=== PATIENT | male | born 1995 | race Caucasian/White ===

== ENCOUNTER 2019-04-07 16:07 | Emergency (ER) | payer SELFPAY ==
[~2019-04-07] VITALS: Ht 167.6 cm; Wt 78.2 kg
[2019-04-07 16:36] VITALS: Ht 167.6 cm; Wt 78.2 kg
[2019-04-07] MEDS ORDERED: SOD CHLORIDE 0.9% 1,000 ML IV STA (18:33)
[2019-04-07] MEDS ORDERED: ONDANSETRON 4 MG INJ IV STA (18:33)
[2019-04-07] MEDS ORDERED: ONDA4TAB14 PO (20:15)
[2019-04-07 20:28] VITALS: BP 127/72; PULSE 85; RESP 18
--- NOTE | 2019-04-08 04:05 | ERD ---
ER Documentation Chief Complaint Chief Complaint vomitting & body aches since am HPI This is a otherwise healthy 24-year-old male presents the ED complaining of nausea, vomiting since this morning. Patient reports multiple episodes of nonbilious, nonbloody emesis. He reports some abdominal cramping as well. Denies any fevers or chills. Denies any diarrhea. Denies any recent travel or antibiotics. Patient states symptoms started after eating steak and shrimp last night. No other ill contacts. ROS All systems reviewed and are negative except as per history of present illness. Medications Home Meds Active Scripts Ondansetron (Ondansetron Odt) 4 Mg Tab.rapdis, 4 MG PO Q6H PRN for NAUSEA AND/OR VOMITING, #10 TAB Prov:MIRNA DAMON PA-C 04/07/19 Allergies Allergies: Coded Allergies: Sulfa (Sulfonamide Antibiotics) (Verified Allergy, Unknown, 04/07/19) Uncoded Allergies: SULFA (Allergy, Intermediate, 07/18/13) PMhx/Soc History of Surgery: Yes (testicular torsion sx 2006) Anesthesia Reaction: No Hx Neurological Disorder: No Hx Respiratory Disorders: No Hx Cardiac Disorders: No Hx Psychiatric Problems: No Hx Miscellaneous Medical Probl: No Hx Alcohol Use: No Hx Substance Use: No Hx Tobacco Use: No Smoking Status: Never smoker Physical Exam Vitals Vital Signs Date Temp Pulse Resp B/P (MAP) Pulse Ox O2 O2 Flow FiO2 Time Delivery Rate 04/07/19 98.5 85 18 127/72 99 20:28 (90) 04/07/19 99.7 108 18 145/80 98 16:36 (101) Physical Exam Const: No acute distress Head: Atraumatic Eyes: Normal Conjunctiva ENT: Normal External Ears, Nose and Mouth. Neck: Full range of motion. No meningismus. Resp: Clear to auscultation bilaterally Cardio: Regular rate and rhythm, no murmurs Abd: Soft, non tender, non distended. No rebound, no guarding. Normal bowel sounds Skin: No petechiae or rashes Back: No midline or flank tenderness Ext: No cyanosis, or edema Neur: Awake and alert Psych: Normal Mood and Affect Result Diagram: 04/07/19 1842 04/07/19 1842 Results 24 hrs Laboratory Tests Test 04/07/19 18:42 White Blood Count 9.0 10^3/ul Red Blood Count 5.22 10^6/ul Hemoglobin 15.6 g/dl Hematocrit 46.2 % Mean Corpuscular Volume 88.5 fl Mean Corpuscular Hemoglobin 29.9 pg Mean Corpuscular Hemoglobin Concent 33.8 g/dl Red Cell Distribution Width 11.7 % Platelet Count 343 10^3/UL Mean Platelet Volume 9.3 fl Immature Granulocytes % 0.900 % Neutrophils % 74.7 % Lymphocytes % 16.8 % Monocytes % 7.2 % Eosinophils % 0.1 % Basophils % 0.3 % Nucleated Red Blood Cells % 0.0 /100WBC Immature Granulocytes # 0.080 10^3/ul Neutrophils # 6.7 10^3/ul Lymphocytes # 1.5 10^3/ul Monocytes # 0.7 10^3/ul Eosinophils # 0.0 10^3/ul Basophils # 0.0 10^3/ul Nucleated Red Blood Cells # 0.0 10^3/ul Urine Color YELLOW Urine Clarity CLEAR Urine pH 5.0 Urine Specific [place] 1.030 Urine Ketones NEGATIVE mg/dL Urine Nitrite NEGATIVE mg/dL Urine Bilirubin NEGATIVE mg/dL Urine Urobilinogen NEGATIVE mg/dL Urine Leukocyte Esterase NEGATIVE Sparkle/ul Urine Hemoglobin NEGATIVE mg/dL Urine Glucose NEGATIVE mg/dL Urine Total Protein NEGATIVE mg/dl Sodium Level 139 mmol/L Potassium Level 4.0 mmol/L Chloride Level 100 mmol/L Carbon Dioxide Level 25 mmol/L Anion Gap 14 Blood Urea Nitrogen 15 mg/dl Creatinine 0.81 mg/dl Est Glomerular Filtrat Rate mL/min > 60 mL/min Glucose Level 99 mg/dl Calcium Level 9.6 mg/dl Total Bilirubin 0.8 mg/dl Direct Bilirubin 0.00 mg/dl Indirect Bilirubin 0.8 mg/dl Aspartate Amino Transf (AST/SGOT) 49 IU/L Alanine Aminotransferase (ALT/SGPT) 42 IU/L Alkaline Phosphatase 80 IU/L Total Protein 8.6 g/dl Albumin 4.9 g/dl Globulin 3.70 g/dl Albumin/Globulin Ratio 1.32 Lipase 33 U/L Current Medications Medications Dose Sig/Abraham Start Time Status Last (Trade) Ordered Route PRN Stop Time Admin Dose Reason Admin Sodium 1,000 ml @ Q1H STAT 04/07/19 DC 04/07/19 Chloride 1,000 mls/hr IV 18:33 18:46 04/07/19 19:32 Ondansetron 4 mg ONCE STAT 04/07/19 DC 04/07/19 HCl (Zofran IV 18:33 18:46 Inj) 04/07/19 18:34 Procedures/MDM LABS & DIAGNOSTIC IMAGING: CBC: no e/o of systemic infection or severe anemia CMP: no e/o severe acidosis, alkalosis, renal failure, diabetic ketoacidosis, liver disease The patient's lipase is normal and indicative of no pancreatitis. ED COURSE: The patient was given IV fluids, Zofran The medication was well tolerated and the patient had market improvement in symptoms. The patient remained stable throughout ED course. MEDICAL DECISION MAKING: This is a 24-year-old female presents with nausea and vomiting after eating shrimp and steak last night. Patient's labs unremarkable. He has no fever here. Vital signs are stable. Abdominal exam is benign. I have low suspicion for appendicitis, cholecystitis, diverticulitis or any other acute abdominal pathology. Symptoms are likely viral. Patient felt much better after IV fluids and Zofran. He was discharged home with dietary modifications and a presc ription for Zofran. Recommended PCP follow-up sometime this week. Strict return precautions were discussed. PRESCRIPTIONS: Zofran SPECIALIST FOLLOW UP RECOMMENDED: None Patient has been advised to follow up with primary care in 1-2 days. Departure Diagnosis: Primary Impression: Nausea and vomiting Vomiting type: unspecified Vomiting Intractability: non-intractable Qualified Codes: R11.2 - Nausea with vomiting, unspecified Condition: Stable Patient Instructions: Nausea and Vomiting-Adult Referrals: [facility] YOU HAVE RECEIVED A MEDICAL SCREENING EXAM AND THE RESULTS INDICATE THAT YOU DO NOT HAVE A CONDITION THAT REQUIRES URGENT TREATMENT IN THE EMERGENCY DEPARTMENT. FURTHER EVALUATION AND TREATMENT OF YOUR CONDITION CAN WAIT UNTIL YOU ARE SEEN IN YOUR DOCTORS OFFICE WITHIN THE NEXT 1-2 DAYS. IT IS YOUR RESPONSIBILITY TO MAKE AN APPOINTMENT FOR FOLOW-UP CARE. IF YOU HAVE A PRIMARY DOCTOR --you should call your primary doctor and schedule an appointment IF YOU DO NOT HAVE A PRIMARY DOCTOR YOU CAN CALL OUR PHYSICIAN REFERRAL HOTLINE AT IF YOU CAN NOT AFFORD TO SEE A PHYSICIAN YOU CAN CHOSE FROM THE FOLLOWING [facility] [address] [facility]. [facility] [address] [facility] [facility] [address] [facility] [address] [facility] [address] [facility]. [facility]. [address] [facility]. [facility] YOU HAVE RECEIVED A MEDICAL SCREENING EXAM AND THE RESULTS INDICATE THAT YOU DO NOT HAVE A CONDITION THAT REQUIRES URGENT TREATMENT IN THE EMERGENCY DEPARTMENT. FURTHER EVALUATION AND TREATMENT OF YOUR CONDITION CAN WAIT UNTIL YOU ARE SEEN IN YOUR DOCTORS OFFICE WITHIN THE NEXT 1-2 DAYS. IT IS YOUR RESPONSIBILITY TO MAKE AN APPOINTMENT FOR FOLOW-UP CARE. IF YOU HAVE A PRIMARY DOCTOR --you should call your primary doctor and schedule and appointment IF YOU DO NOT HAVE A PRIMARY DOCTOR YOU CAN CALL OUR PHYSICIAN REFERRAL HOTLINE AT . IF YOU CAN NOT AFFORD TO SEE A PHYSICIAN YOU CAN CHOSE FROM THE FOLLOWING [facility] INSTITUTIONS[facility] [address] [place] [address] [facility] [address] [place] [address] [facility] + [facility] [address] [place] [address] Additional Instructions: Stick to bland diet of bananas, rice, applesauce, toast, boiled vegetables for the next 3 days. He can advance to diet as tolerated. See her regular care doctor in the next few days. Return here for any new or worsening symptoms. MIRNA DAMON PA-C Apr 08, 2019 04:05
== END 2019-04-07 20:29 | disposition home or self-care (01) ==
LOC: FTE 16:07
DX: R11.2 Nausea with vomiting, unspecified (principal)
CPT/HCPCS: 36415; 80053; 81003; 83690; 85025; 96374; 99284; J2405; J7030